=== PATIENT | female | born 2000 | race Caucasian/White ===

== ENCOUNTER 2024-06-25 14:51 | Emergency (ER) | payer SELFPAY ==
[2024-06-25 15:02] VITALS: BP 147/74; PULSE 82; RESP 24; TEMP 35.5; O2SAT 94
--- NOTE | 2024-06-25 15:09 | ED.URI ---
HPI - URI/Sore Throat General Chief Complaint: Upper Respiratory Infection Stated Complaint: SOB Source: patient Mode of arrival: ambulatory Limitations: no limitations History of Present Illness HPI Narrative: 23 y/o female with hx asthma presented for c/o 'shortness of breath.' Endorses cough and wheezing today, stating she needs a breathing treatment because her albuterol inhaler is not working enough. Started with sore throat and runny nose yesterday. Denies chest pain, palpitations, n/v/d. Related Data Home Medications Medication Instructions Recorded Confirmed albuterol sulfate 90 mcg/actuation inhalation 06/25/24 aerosol inhaler Allergies Allergy/AdvReac Type Severity Reaction Status Date / Time No Known Allergies Allergy Verified 06/25/24 15:10 Review of Systems Review of Systems: CONSTITUTIONAL: Denies body aches reports fever, chills EYES: Denies visual changes, redness, or discharge. ENT: Reports rhinorrhea, congestion, sore throat, denies otalgia. CARDIOVASCULAR: Denies chest pain, palpitations, or edema. RESPIRATORY: Reports cough, sob, wheezing. GASTROINTESTINAL: Denies abdominal pain, nausea, vomiting, or diarrhea. SKIN: Denies rash, itching, or wounds. MUSCULOSKELETAL: Denies back pain, joint pain, or myalgia. NEUROLOGIC: Denies headache, numbness, tingling, or weakness. All systems reviewed & are unremarkable except as noted in HPI and below PMFSH Past Medical History Medical History (Updated 06/25/24 @ 16:32 by Arlet Bates APRN) Asthma Comments At time of signature, I have reviewed and agree with nursing past medical, surgical, social and family history unless otherwise noted. Please see nursing chart for further information. There is no relevant family history pertinent to the presenting complaint Exam Narrative: GENERAL: Well-appearing, in no acute distress. EYES: EOMI. No redness or drainage. Conjunctivae normal. ENT: Mucous membranes pink and moist. No rhinorrhea. TMs normal bilaterally. Throat normal. Uvula midline. NECK: Normal AROM. CHEST: No respiratory distress. Inspiratory and expiratory Wheezing to all naik, tachypnea. nonproductive cough. Speaks full sentences. HEART: Regular rate and rhythm. No murmur appreciated. ABDOMEN: Soft, nontender, nondistended, normal active bowel sounds. EXTREMITIES: Normal range of motion. No edema. SKIN: Warm, dry, no rash. Capillary refill normal. Normal skin turgor. NEURO: Alert and oriented x3. Gait steady. PSYCH: Normal affect. Course Course Emergency Course: Patient is aware of diagnosis, understands and agrees to treatment plan. Anticipatory guidance given. Patient agrees to follow-up as directed and is aware of reasons to seek care at the emergency department. Portions of this record may have been created with voice recognition software Level of Care: Express Care Visit Vital Signs Vital signs: Vital Signs Temperature 96 F L 06/25/24 15:02 Pulse Rate 82 06/25/24 15:02 Respiratory Rate 24 H 06/25/24 15:02 Blood Pressure 147/74 H 06/25/24 15:02 Pulse Oximetry 94 06/25/24 15:02 Oxygen Delivery Room Air 06/25/24 15:02 Temperature 96 F L 06/25/24 15:02 Pulse Rate 82 06/25/24 15:02 Respiratory Rate 24 H 06/25/24 15:02 Blood Pressure 147/74 H 06/25/24 15:02 Pulse Oximetry 94 06/25/24 15:02 Oxygen Delivery Room Air 06/25/24 15:02 MDM - URI/Sore Throat MDM Narrative Medical decision making narrative: Patient reassessed after DuoNeb, continues to have audible wheezing. Subsequent Albuterol neb ordered. Declines ER transfer. Reported significant improvement in breathing/wheezing after albuterol. Lungs reassessed, bases with exp wheezing but much improved throughout. Discussed physical exam findings. Reviewed Rx. Advised supportive measures and signs/symptoms to go to the ER. Pt is appropriate for outpt treatment and f/u. Pt advised to establish with pcp.
[2024-06-25] MEDS: IPRATROPIUM 0.5 MG/ALBUTEROL SULFATE 2.5 MG AMPUL.NEB 3 ML INHALATION (15:19)
[2024-06-25 15:36] LABS: EDINFLUASCREEN Negative; EDINFLUBSCREEN Negative
[2024-06-25] MEDS: ALBUTEROL SULFATE NEB 2.5 MG/3 ML INH INHALATION (16:10)
== END 2024-06-25 16:42 | disposition home or self-care (01) ==
PROVIDERS: Emergency Provider Nurse Practitioner Family
DX: J45.901 Unspecified asthma with (acute) exacerbation (principal); Z20.822 Contact with and (suspected) exposure to COVID-19
CPT/HCPCS: 87426; 87804; 99203; G0463